=== PATIENT | female | born 1965 | race Caucasian/White ===

== ENCOUNTER → 2022-02-22 | Outpatient (CLI) | payer BC | LOC: KOH-I 09:35 | DX: M25.571 Pain in right ankle and joints of right foot (principal); A52.16 Charcot's arthropathy (tabetic) | CPT/HCPCS: 73610; 73630 ==

== ENCOUNTER → 2022-03-08 | Outpatient (CLI) | payer BC | LOC: KOH-I 14:08 | DX: M25.571 Pain in right ankle and joints of right foot (principal); M79.671 Pain in right foot; M19.071 Primary osteoarthritis, right ankle and foot; M14.671 Charcot's joint, right ankle and foot | CPT/HCPCS: 73610; 73630 ==

== ENCOUNTER → 2022-04-07 | Outpatient (CLI) | payer BC | LOC: KOH-I 10:30 | DX: S92.901A Unspecified fracture of right foot, initial encounter for closed fracture (principal); M14.671 Charcot's joint, right ankle and foot | CPT/HCPCS: 73630 ==

== ENCOUNTER → 2022-05-05 | Outpatient (CLI) | payer BC | LOC: KOH-I 09:30 | DX: M79.671 Pain in right foot (principal); A52.16 Charcot's arthropathy (tabetic) | CPT/HCPCS: 73630 ==

== ENCOUNTER → 2022-06-16 | Outpatient (CLI) | payer BC | LOC: KOH-I 08:59 | DX: M79.671 Pain in right foot (principal); A52.16 Charcot's arthropathy (tabetic) | CPT/HCPCS: 73630 ==